=== PATIENT | male | born 1990 | race Caucasian/White ===

== ENCOUNTER 2023-05-14 19:36 | Emergency (ER) | payer MEDICAID, SELFPAY ==
[2023-05-14 19:38] VITALS: BP 117/75; PULSE 78; RESP 11; TEMP 36.7; O2SAT 95; BMI 36.0
[2023-05-14 19:47] VITALS: BP 117/75; PULSE 78; RESP 16; TEMP 36.7; O2SAT 93
--- NOTE | 2023-05-14 21:00 | RAD_ITS ---
STUDY: X-RAY CHEST REASON FOR EXAM: Male, 33 years old. chest pain TECHNIQUE: Single frontal view of the chest. COMPARISON: None. FINDINGS: The lungs are clear and expanded. There is no demonstrated pleural abnormality. Normal size heart. Normal mediastinum and jarek. Normal visualized pulmonary arteries. Normal visualized aortic arch and descending thoracic aorta. Normal visualized thoracic spine. Normal visualized ribs, clavicles, and shoulders. There is no demonstrated abnormality of the visualized soft tissue structures of the upper abdomen. RAD/Chest 1 View (Portable) IMPRESSION: Normal x-ray examination of the chest. Electronically Signed: Jesu Chappell MD at 22:13 [facility] ,
--- NOTE | 2023-05-14 21:01 | EX.ED.DYSGE1 ---
HPI History of Present Illness Chief Complaint: Syncope Informant: patient Onset/Context/Timing Onset: Today Context: Sudden Onset Timing: Intermittent Current Severity: Gone Maximum Severity: Severe Narrative Narrative: 33-year-old male past medical history of a prior DVT on Xarelto that was several years ago he is now off the blood thinner. 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 He was receiving training today. Had a syncopal episode. Said he was feeling fine has not been sick lately. Denies any recent chest pain, headache, abdominal pain. Denies any nausea, vomiting or diarrhea. No leg pain or swelling. He was sitting watching a video he felt very tired and then he passed out. He was caught by someone they moved into a table and no one could feel a carotid or radial pulse there they started CPR ended about 10-20 compressions and came to. They regained a pulse. They put him in the squad to bring him to the emergency department and he had bradycardic episodes then resolved on its own and needed no intervention. He was given Zofran and route. Currently denies any complaints. He denies any chest pain. Prior similar symptoms: Yes Recent Illness/Hospitalization: No PFSH PFS Medical History History of Holter monitoring Allergy/AdvReac Type Severity Reaction Status Date / Time No Known Allergies Allergy Verified 05/14/23 19:48 Surgical History History of appendectomy Social History Smoking Status: Current every day smoker tobacco type: cigarettes ROS ROS ED ROS Narrative Denies recent illness. Review of Systems ROS Unobtainable: Denies due to encephalopathy Constitutional Constitutional ED: Denies chills or fever(s) Eyes Eyes: Denies blurry vision ENT ENT ED: Denies ear pain, rhinorrhea or sore throat Cardiovascular Cardiovascular: Denies chest pain Respiratory/Chest Respiratory/Chest: Denies cough, dyspnea or dyspnea on exertion Gastrointestinal Gastrointestinal: Denies abdominal pain, diarrhea, melena, nausea or vomiting Genitourinary Genitourinary ED: Denies dysuria or hematuria Musculoskeletal Musculoskeletal: Denies arthralgias Integumentary Denies abscess or Abrasions Neurologic Neurologic: Denies headache(s) Psychiatric Psychiatric: Denies anxiety or depression Endocrine Endocrinology: Denies cold intolerance Hematologic/Lymphatic Hematologic/Lymphatic: Reports none Allergic/Immunologic Allergic/Immunologic ED: Denies mouth swelling, tongue swelling or urticaria EXAM Physical Exam Narrative Exam Narrative: Well-appearing 33-year-old male. Vital signs stable afebrile. Pulse ox 95% on room air no signs hypoxia. Heart rate 78. Blood pressure 117/75. No distress. Laughing and joking with other people in the room. HEENT exam normal. Pupils round reactive light. Neck nontender no JVD. Lungs clear to auscultation bilaterally. Heart regular rhythm rate about 80 no murmur. Chest wall and ribs nontender. No crepitus. Abdomen soft nontender. Back nontender. Moving all 4 extremities. 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 Dorsi plantarflexion intact. Calves are nontender without edema or cords. Equal symmetrical radial pulses. Neurologically is awake and alert with no focal motor deficits. NIH of 0. Const Vital Signs: 05/14/23 19:38 05/14/23 19:47 05/14/23 19:49 Temperature 98.1 F 98.1 F Temperature Source Oral Oral Pulse Rate 78 78 Respiratory Rate 11 L 16 Respiratory Effort Normal Respiratory Pattern Normal Blood Pressure 117/75 117/75 Blood Pressure Mean 89 89 Pulse Ox 95 93 Oxygen Delivery Method Room Air Room Air 05/14/23 21:10 05/14/23 22:06 Temperature Temperature Source Pulse Rate 79 76 Respiratory Rate 19 H 18 Respiratory Effort Respiratory Pattern Blood Pressure 130/70 H 140/84 H Blood Pressure Mean 90 102 Pulse Ox 99 96 Oxygen Delivery Method Room Air Room Air Positive well nourished and well developed; Negative for cachectic, contractures or unkempt General Appearance ED: well developed and NAD; Negative for unkempt, cachectic, contractures, cyanotic, diaphoretic or pallor Nutritional Appearance: Negative for cachectic HEENT Reports moist mucous membranes Negative for trauma or tenderness Eyes PERRL and EOMs intact bilaterally General Eye ED: Negative for pale conjunctiva or scleral icterus Neck no lymphadenopathy and no JVD Chest Wall inspection of chest normal and palpation of chest normal Chest: Negative for other Resp normal respiratory effort and clear to auscultation bilaterally Effort and Inspection: Negative for retractions Auscultation: Negative for rales, rhonchi or wheezes Cardio regular rate, regular rhythm, S1 normal heart sound, S2 normal heart sound and no murmurs Palpation: Negative for palpable S3 or palpable S4 Rate: Negative for bradycardia or tachycardic Rhythm: Negative for abnormal rhythm GI normal to inspection, nondistended, normoactive bowel sounds, non-tender, non-distended and no masses Inspection: Negative for abdominal distention Auscultation: normoactive bowel sounds Palpation: soft; Negative for tender or guarding Back/Spine no CVA tenderness General Back: Negative for CVA tenderness Cervical Spine: Negative for cervical spine tenderness Thoracic Spine / Upper Back: Negative for thoracic spinal tenderness or paraspinal muscle tenderness Lumbar Spine / Lower Back: Negative for lumbar spinal tenderness Extremity normal to inspection General Extremety ED: Negative for edema or tenderness General Extremity: Negative for edema Neuro oriented x3 and CN's II-XII intact bilaterally Sensorium / Orientation: alert and orientation impaired; Negative for lethargic or stuporous Motor Exam: strength 5/5 throughout; Negative for general weakness or strength abnormal Psych mental status grossly normal Appearance: Negative for unkempt Attitude: No agitated Mood & Affect: Negative for depressed, anxious or tearful Skin no rashes or lesions noted, no wounds and skin turgor normal General Skin Exam: Negative for jaundice or pallor Lesions: No lesion noted Rashes: No rashes noted Trauma: Negative for abrasion Wounds: Negative for wounds noted MDM MDM MDM Narrative Medical decision making narrative: Well-appearing 33-year-old male with a syncopal episode at EMS training. He started CPR. His exam is normal. Currently stable without any complaints. Cardiac workup including a D-dimer due to the prior DVT history. Repeat exam patient doing well at 10:08 PM doing well. Normal vital signs. Normal rhythm. Normal pressure and pulse. Exam repeated and unchanged and normal. I went over all test results with both he and his significant other at bedside. His labs, EKG and chest x-ray were all unremarkable. He had a normal D-dimer and troponin. He does not want to stay to be admitted overnight to be observed for possible dysrhythmia. He has had an outpatient Holter or cardiac monitoring done before which she said showed nothing specific. He has had a syncopal episode before and never found a specific cause. They understand the risk and benefit. He will be discharged home with outpatient follow-up to cardiology. History & Record Review Discussion w/independent historian: Patient and Family Lab Data Attestation: I reviewed the patient's lab results. Lab results narrative: CBC normal. White count of 7. H&H 16 and 48. Platelets 198. D-dimer is normal at 0.47. Troponin is normal at 4. Chemistries potassium 3.2. Gap of 2. Normal BUN of 16 creatinine 1.1. Glucose 98. Chest x-ray normal. Labs: Laboratory Results - last 24 hr 05/14/23 19:42 WBC 7.7 RBC 5.59 Hgb 16.2 Hct 48.2 MCV 86.2 MCH 29.0 MCHC 33.6 RDW Std Deviation 40.1 RDW Coeff of Marco 12.8 Plt Count 198 MPV 10.5 Immature Gran % (Auto) 0.100 Neut % (Auto) 52.0 Lymph % (Auto) 37.9 [place] % (Auto) 6.3 Eos % (Auto) 3.0 Baso % (Auto) 0.7 Absolute Neuts (auto) 4.0 Absolute Lymphs (auto) 2.90 Nucleated RBC % 0 D-Dimer Quant (PE/DVT) 0.47 Sodium 138 Potassium 3.2 L Chloride 107 Carbon Dioxide 29.0 Anion Gap 2 L BUN 16 Creatinine 1.15 Estim Creat Clear Calc 109.93 Est GFR (MDRD) Af Amer 93 Est GFR (MDRD) Non-Af 77 BUN/Creatinine Ratio 13.9 Glucose 98 Calcium 9.3 Troponin I High Sens 4 Radiography Chest X-Ray - ED: Read by ED Physician, Normal, Heart, Lungs, Mediastinum, Bony Structures and No Acute Disease Diagnostic Testing: Chest x-ray, portable, single view shows normal cardiac silhouette. Normal lung cabrera. Interpreted by myself. Rhythm Strip Rhythm Strip: Sinus Rhythm Rate: 78 Ectopy: None EKG Initial EKG: Attestation: I personally reviewed and interpreted this EKG as follows: Interpretation: Sinus Rhythm and No Acute Injury Pattern Comments: Normal sinus rhythm rate of 78 no acute signs of IL, ischemia nor any dysrhythmia. No old EKG available for comparison. Prior EKG tracings: not available for review Discharge Plan Triage Chief Complaint: Syncope ED Provider: Gerardo Balderrama Dx/Rx/DC Orders Clinical Impression: Syncope Instructions: Causes of Syncope Primary Care Provider: Christian Boswell Referrals: Shmuel Suggs MD [Med Staff - Active Staff] - As soon as possible Activity Restrictions/Additional Instructions: Plenty of fluids and rest. Call and follow-up with cardiology Dr. Shmuel Suggs or one of the other facility coordinator in the office to see if they want to do any further workup. Please do not drive if you are feeling lightheaded or dizzy. If you have another syncopal event you need to be evaluated. Return if feeling worse. Disposition Disposition: Home, Self Care
[2023-05-14 21:10] VITALS: BP 130/70; PULSE 79; RESP 19; O2SAT 99
[2023-05-14 21:14] LABS: Basophil# 0.05 X10^3/uL; Basophil% 0.7 % (0-1); Eosinophil# 0.23 X10^3/uL; Hematocrit 48.2 % (40-54); Hemoglobin 16.2 g/dL (13.0-16.5); Lymphocyte % 37.9 % (19-41); Mean Corp Hgb Conc 33.6 g/dL (32-36); Mean Corpuscular Volume 86.2 fL (80-94); Mean Platelet Vol. 10.5 fl (6.2-12.0); Monocyte# 0.48 X10^3/uL; Monocyte% 6.3 % (0-10); NRBC Flagged by Analyzer 0 % (0-5); Neutrophil # 3.98 X10^3/uL (2.7-7.7); Platelet Count 198 K/mm3 (150-450); RBC Distribution Width CV 12.8 % (11.6-14.6); RBC Distribution Width SD 40.1 fl (35.1-43.9); Red Blood Count 5.59 M/mm3 (4.6-6.2); White Blood Count 7.7 K/mm3 (4.4-11.0)
[2023-05-14 21:25] LABS: D-Dimer Quantitative (DVT/PE) 0.47 FEU/ug/m (0.27-0.49)
--- OUTSIDE RECORDS SUMMARY | 2023-05-14 21:30 | XMS RPT_ITS | CCD ---
Author Name Unknown Address [address] [place] [address] Organization [facility] Care Team Providers Care Legal Cashier Name Role Phone NINO GONZALEZ Admitting Unavailable NINO GONZALEZ Primary Care Unavailable NINO GONZALEZ Consulting Unavailable NINO GONZALEZ Attending Unavailable PROVIDER, UNKNOWN Consulting Unavailable PROVIDER, UNKNOWN Consulting Unavailable PROVIDER, UNKNOWN Consulting Unavailable Results Test Name Value Interpretation Reference Range Facil ity Encounters Encounter Date Encounter Type Care Provider Facility Start: 10-31-2020 End: 10-31-2020 ambulatory NINO GONZALEZ Rubens Dee [facility] Payers Date Payer Category Payer Unknown [id number] Unknown [id number] Summary Purpose Family History No Family History Records Found Advance Directives No Advanced Directives Records Found Additional Source Comments (unrecognized sect ion and content) No Status Records Found INFORMATION SOURCE (unrecogn ized section and content) FOR RECORDS PERTAINING TO PATIENTS WHO ARE OR HAVE BEEN ENROLLED IN A CHEMICAL DEPENDENCY/SUBSTANCEABUSE PROGRAM, SOME INFORMATION MAY BE OMITTED. This clinical summary was aggregated from multiple sources. Caution should be exercised in using it in the provision of clinical care. This summary normalizes information from multiple sources, and as a consequence, information in this document may materially change the coding, format and clinical context of patient data. In addition, data may be omitted in some cases. CLINICAL DECISIONS SHOULD BE BASED ON THE PRIMARY CLINICAL RECORDS. [employer] provides no warranty or guarantee of the accuracy or completeness of information in this document.
[2023-05-14 21:33] LABS: Anion Gap 2 (5-15); BUN 16 mg/dL (7-18); BUN/Creat Ratio 13.9 RATIO (10-20); Calcium,Total 9.3 mg/dL (8.5-10.1); Chloride 107 mmol/L (98-107); Creatinine, Serum 1.15 mg/dL (0.70-1.30); EST Glomerular Filtration Rate 77 mL/min (>60); Est Glom Filt Rate - Afr Amer 93 mL/min (>60); Estimated Creatinine Clearance 109.93 ml/min; Glucose 98 mg/dL (74-106); Potassium 3.2 mmol/L (3.5-5.1); Sodium Level 138 mmol/L (136-145); Troponin-I HS 4 pg/mL (3.0-78.0)
[2023-05-14 22:06] VITALS: BP 140/84; PULSE 76; RESP 18; O2SAT 96
[2023-05-14 22:17] VITALS: BP 140/84; PULSE 76; RESP 18; O2SAT 96
== END 2023-05-14 22:23 | disposition home or self-care (01) ==
PROVIDERS: Emergency Provider Emergency Medicine; PCP Internal Medicine Critical Care Medicine; Visit Provider Emergency Medicine
DX: R55 Syncope and collapse (principal); F17.210 Nicotine dependence, cigarettes, uncomplicated
CPT/HCPCS: 71045; 80048; 84484; 85025; 85379; 93005; 99284; A4216

== ENCOUNTER → 2023-07-01 | Outpatient (CLI) | payer MEDICAID, SELFPAY ==
--- NOTE | 2023-07-01 15:54 | ECHOD_ITS ---
Reason For Study: SYNCOPE/COLLAPSE, ARRHYTHMIA Procedure This was a 2D Doppler, Color Flow transthoracic echocardiogram. Exam performed in department. Left Ventricle Normal LV size. The estimated ejection fraction is 60 %. No evidence for diastolic dysfunction. No regional wall motion abnormalities noted. Right Ventricle Normal RV size. Normal systolic function. Atria The left and right atria are normal. No doppler evidence for ASD. Mitral Valve There is no mitral valve stenosis. No mitral valve insufficiency. Tricuspid Valve There is no tricuspid stenosis. Unable to estimate RV systolic pressure due to inadequate jet, pulmonary artery pressure probably normal. Aortic Valve Trisinus/trileaflet aortic valve. There is no aortic stenosis. No aortic valve insufficiency. Pulmonic Valve There is no pulmonic valvular stenosis. No pulmonic valve insufficiency. Great Vessels Normal aortic root. Pericardium/Pleural No pericardial effusion. MMode/2D Measurements & Calculations LVIDd: 4.8 cm IVSd: 1.0 cm Ao root diam: 3.3 cm LVIDs: 3.5 cm LVPWd: 1.0 cm RVDd: 2.8 cm FS: 27.8 % LAV(MOD-bp): 51.6 ml LVAd ap4: 27.1 cm2 LVAd ap2: 26.2 cm2 LAV(MOD-bp) Indexed: 23.7 ml/m2 LVLd ap4: 8.2 cm LVLd ap2: 8.2 cm LAV(MOD-sp2): 46.7 ml EDV(MOD-sp4): 72.1 ml EDV(MOD-sp2): 69.9 ml LAV(MOD-sp4): 50.7 ml EDV(sp4-el): 75.4 ml EDV(sp2-el): 70.9 ml LVAs ap4: 15.1 cm2 LVAs ap2: 14.5 cm2 LVLs ap4: 6.6 cm LVLs ap2: 6.3 cm ESV(MOD-sp4): 31.3 ml ESV(MOD-sp2): 29.8 ml ESV(sp4-el): 29.3 ml ESV(sp2-el): 28.2 ml EF(MOD-sp4): 56.6 % EF(MOD-sp2): 57.3 % EF(sp4-el): 61.1 % SV(MOD-sp4): 40.9 ml SV(MOD-sp2): 40.1 ml SV(sp4-el): 46.0 ml LA dimension(2D): 3.8 cm LA A4 area: 18.1 cm2 RA A4 area: 13.9 cm2 TAPSE: 2.2 cm Time Measurements MV dec time: 0.23 sec Doppler Measurements & Calculations MV E max asif: 64.3 cm/sec Lat Peak E' Asif: 12.7 cm/sec Med Peak E' Asif: 12.2 cm/sec MV A max asif: 44.3 cm/sec E/E' lat: 5.0 E/E' med: 5.3 MV E/A: 1.5 MV V2 max: 67.8 cm/sec MV P1/2t max asif: 66.5 cm/sec Ao V2 max: 120.7 cm/sec MV max P.8 mmHg MV P1/2t: 54.7 msec Ao max P.8 mmHg MV V2 mean: 40.9 cm/sec MV dec slope: 356.0 cm/sec2 Ao V2 mean: 79.4 cm/sec MV mean P.75 mmHg Ao mean P.0 mmHg MV V2 VTI: 17.3 cm MVA(P1/2t): 4.0 cm2 Ao V2 VTI: 20.5 cm AV (velocity ratio): 0.87 LV V1 max: 104.4 cm/sec PA V2 max: 156.4 cm/sec LV V1 max P.4 mmHg PA V2 mean: 116.6 cm/sec LV V1 mean P.2 mmHg LV V1 mean: 70.2 cm/sec LV V1 VTI: 17.7 cm ECHO/Echo Complete Interpretation Summary The estimated ejection fraction is 60 %. No evidence for diastolic dysfunction. Ordering Physician: Shmuel Suggs Referring Physician: Shmuel Suggs Performed By: Lyly Price, SHAAN, RVT
--- OUTSIDE RECORDS SUMMARY | 2023-07-02 02:34 | XMS RPT_ITS | CCD ---
Author Name Unknown Address [address] [place] [address] Organization [facility] Care Team Providers Care Fashion Buyer Name Role Phone NINO GONZALEZ Admitting Unavailable NINO GONZALEZ Primary Care Unavailable NINO GONZALEZ Consulting Unavailable NINO GONZALEZ Attending Unavailable PROVIDER, UNKNOWN Consulting Unavailable PROVIDER, UNKNOWN Consulting Unavailable PROVIDER, UNKNOWN Consulting Unavailable Results Test Name Value Interpretation Reference Range Facil ity Encounters Encounter Date Encounter Type Care Provider Facility Start: 10-31-2020 End: 10-31-2020 ambulatory NINO GONZALEZ Rubens Dee [facility] Payers Date Payer Category Payer Unknown [id number] Unknown [id number] Summary Purpose Family History No Family History [...] BE BASED ON THE PRIMARY CLINICAL RECORDS. [employer] provides no warranty or guarantee of the accuracy or completeness of information in this document.
== END | disposition home or self-care (01) ==
LOC: CVS 15:53
PROVIDERS: PCP Family Medicine; Referring Provider Internal Medicine Cardiovascular Disease; Visit Provider Internal Medicine Cardiovascular Disease
DX: R55 Syncope and collapse (principal); R00.1 Bradycardia, unspecified
CPT/HCPCS: 93306

== ENCOUNTER → 2024-05-24 | Outpatient (CLI) | payer OTHER, SELFPAY ==
--- NOTE | 2024-05-24 13:49 | ECHOD_ITS ---
Reason For Study: FAMILY HX PFO Procedure This was a 2D Doppler, Color Flow transthoracic echocardiogram. Exam performed in department. Left Ventricle Normal LV size. Left ventricular systolic function is normal. The left ventricular ejection fraction is 60 %. No regional wall motion abnormalities noted. Right Ventricle Normal RV size. Normal systolic function. Atria Normal left atrium. Normal right atrium. Bubble contrast study is negative for PFO/ASD. Mitral Valve Normal mitral valve. Tricuspid Valve Normal tricuspid valve. Aortic Valve Trisinus/trileaflet aortic valve. Pulmonic Valve Normal pulmonic valve. Great Vessels Normal aortic root. The pulmonary artery is normal size. Normal inferior vena cava. Pericardium/Pleural No pericardial effusion. Medication 22 gauge I.V. with prn adaptor inserted into left arm. Performed a rapid injection of agitated mix of 9 cc saline and 1cc air to assess for atrial septal defect. MMode/2D Measurements & Calculations LVIDd: 4.5 cm IVSd: 1.1 cm LVOT diam: 2.0 cm LVIDs: 2.9 cm LVPWd: 1.0 cm RVDd: 3.8 cm FS: 35.5 % LVOT area: 3.2 cm2 _ asc Aorta Diam: 2.8 cm LAV(MOD-bp): 23.0 ml LVAd ap4: 27.4 cm2 LAV(MOD-bp) Indexed: 10.4 ml/m2 LVLd ap4: 8.4 cm LAV(MOD-sp2): 28.2 ml EDV(MOD- sp4): 73.1 ml LAV(MOD-sp4): 19.2 ml EDV(sp4- el): 75.8 ml LVAs ap4: 15.1 cm2 LVLs ap4: 7.1 cm ESV(MOD- sp4): 27.5 ml ESV(sp4- el): 27.4 ml EF(MOD- sp4): 62.4 % EF(sp4- el): 63.8 % _ LVAd ap2: 21.4 cm2 SV(MOD-sp4): 45.6 ml SV(MOD- sp2): 29.5 ml LVLd ap2: 7.8 cm SI(MOD-sp4): 20.6 ml/m2 SI(MOD- sp2): 13.3 ml/m2 EDV(MOD-sp2): 50.6 ml EDV(sp2-el): 49.9 ml LVAs ap2: 12.5 cm2 LVLs ap2: 6.3 cm ESV(MOD-sp2): 21.1 ml ESV(sp2-el): 21.1 ml EF(MOD-sp2): 58.3 % _ SV(sp4-el): 48.3 ml Ao sinus diam: 3.[address] [place]: 2.5 cm _ LA dimension(2D): 3.8 cm LA A4 area: 10.0 cm2 RA A4 area: 8.7 cm2 _ TAPSE: 1.8 cm Time Measurements MV dec time: 0.16 sec Doppler Measurements & Calculations MV E max asif: 68.8 cm/sec Lat Peak E' Asif: 14.5 cm/sec Med Peak E' Asif: 10.7 cm/sec MV A max asif: 59.9 cm/sec E/E' lat: 4.7 E/E' med: 6.5 MV E/A: 1.1 _ MV dec slope: 428.3 cm/sec2 Ao V2 max: 130.6 cm/sec LV V1 max: 101.5 cm/sec Ao max P.8 mmHg LV V1 max P.1 mmHg Ao V2 mean: 101.6 cm/sec LV V1 mean P.2 mmHg Ao mean P.3 mmHg LV V1 mean: 68.7 cm/sec Ao V2 VTI: 25.5 cm LV V1 VTI: 19.6 cm AV (velocity ratio): 0.77 AYESHA(I,D): 2.4 cm2 AYESHA(V,D): 2.4 cm2 _ SV(LVOT): 61.8 ml PA V2 max: 135.7 cm/sec ECHO/Echo Complete Interpretation Summary Normal LV size. Left ventricular systolic function is normal. No regional wall motion abnormalities noted. Bubble contrast study is negative for PFO/ASD. The left ventricular ejection fraction is 60 %. Structurally normal valves. Ordering Physician: FEI PIERSON Referring Physician: FEI PIERSON Performed By: Monisha Cross RDCS
== END | disposition home or self-care (01) ==
PROVIDERS: PCP Family Medicine
DX: Q21.12 Patent foramen ovale (principal)
CPT/HCPCS: 93306; A4216